=== PATIENT | female | born 1945 | race Caucasian/White ===

== ENCOUNTER 2017-05-20 08:26 | Outpatient (CLI) | payer MEDICARE, OTHER ==
[2015-09-15 13:08] VITALS: BP 154/78
== END 2017-05-20 08:27 ==
LOC: POD 08:26
PROVIDERS: ATTEND Podiatrist Public Medicine
DX: M25.774 Osteophyte, right foot (principal); E11.9 Type 2 diabetes mellitus without complications; M25.775 Osteophyte, left foot; L60.0 Ingrowing nail; M79.675 Pain in left toe(s)
CPT/HCPCS: 11721; G0463

== ENCOUNTER 2017-07-31 19:10 | Emergency (ER) | payer MEDICARE, OTHER ==
--- NOTE | 2017-07-31 19:30 | ED Physician Documentation ---
General Adult - HISTORIAN Historian: patient - HPI Stated Complaint: flashes in left eye Chief Complaint: General Adult Additional Information: Cooking dinner, and had about two minutes duration of seeing "icicles" left eye. Knoews she has cataract left eye. - ROS CONST: no problems - PAST HX Past History: hypertension Surgeries/Procedures: other (cataract extraction OD) Allergies/Adverse Reactions: Allergies Allergy/AdvReac Type Severity Reaction Status Date / Time ciprofloxacin [From Cipro] Allergy Verified 07/31/17 19:37 ciprofloxacin HCl Allergy Verified 07/31/17 19:37 [From Cipro] erythromycin base Allergy Verified 07/31/17 19:37 Home Medications: Ambulatory Orders Medication Instructions Recorded Insulin Glargine,Hum.rec.anlog 36 unit SQ HS 02/08/15 [Lantus] Metoprolol Tartrate [Lopressor] 50 mg PO BID 02/08/15 Sitagliptin Phosphate [Januvia] 100 mg PO D 02/08/15 Aspirin [Adult Low Dose Aspirin EC] 162 mg PO BID 09/15/15 Cyanocobalamin [Vitamin B-12] 1 mg PO MONTH 09/15/15 Fluticasone Furoate [Veramyst] 1 spray INH D 09/15/15 Insulin Aspart [Novolog Flexpen] 3 unit SQ AC15 09/15/15 Insulin Aspart [Novolog Flexpen] 5 unit SQ [id number] 09/15/15 Losartan Potassium [Cozaar] 25 mg PO BID 09/15/15 Simvastatin [Zocor] 20 mg PO D 09/15/15 Ranitidine HCl [Zantac] 75 mg PO BID 07/31/17 - SOCIAL HX Smoking History: non-smoker - FAMILY HX Family History: No - VITAL SIGNS Vital Signs: Vital Signs Temp Pulse Resp BP Pulse Ox 82 16 198/62 99 07/31/17 19:10 07/31/17 19:10 07/31/17 19:10 07/31/17 19:10 - REVIEWED ASSESSMENTS Nursing Assessment Reviewed: Yes Vitals Reviewed: Yes Progress - Progress Progress: Study Name: URSZULA PRINCE Date: Jul 31, 2017 7:31:[address] [employer]KE [employer]PLER Modality Type: CT\\SR Gender: F Description: CT BRAIN W/O CONTRAST : 41 Institution: [facility] Physician: JHON TOURE [facility] Head CT without contrast CLINICAL HISTORY: Visual disturbance on the left. TECHNIQUE: CT examination of brain is performed in contiguous axial slices without the use of contrast. FINDINGS: The 4th ventricle lies in a normal midline position. The ventricles and sulci are prominent secondary to atrophy. There is no hypodense or hyperdense mass or intracranial hemorrhage. Visualized paranasal sinuses and the mastoid air cells are clear. IMPRESSION: Atrophy. No acute intracranial changes. Electronically signed on Jul 31, 2017 7:46:[address] [employer]KE [employer]ER by: Pavan La Quite anxious. Concerns about aging. 2019, BP 180/82. Visual acuity, OS, 20/40, OD, couldn't read chart. (no vision OD prior to cataract extraction, she says). ED Results Lab/Radiology - Orders Orders: ED Orders Category Date Time Status CT BRAIN W/O CONTRAST Stat Exams 07/31/17 Ordered General Adult Physical Exam - PHYSICAL EXAM GENERAL APPEARANCE: mild distress (worried) EENT: other (non conjugate. pupils reactive to light. Fundoscopic attempted but unsuccessful. ) NECK: normal inspection, supple RESPIRATORY: no resp distress, breath sounds normal CVS: reg rate & rhythm, heart sounds normal BACK: normal inspection SKIN: warm/dry, normal color EXTREMITIES: normal range of motion (gait and stance), no evidence of injury NEURO: CN's nml as tested, motor nml, sensation nml, cognition normal (reflexes 2+) Discharge Clincal Impression: Vision disturbance Referrals: Rosemarie Carter FNP [REFERRING] - 2 Days Additional Instructions: Follow up with your eye doctor as needed. The CT scan of your brain did not show any changes. Condition: Good Disposition: 01 HOME, SELF-CARE Decision to Admit: NO Decision Time: 20:30
--- NOTE | 2017-07-31 20:01 | Diagnostic Imaging Report ---
JHON TOURE [facility] [address] [facility] [address] [place] [id number]. [id number] Report Submission Date: Jul 31, 2017 7:46:36 PM [employer]BE [employer]ACH[employer]END[employer] Patient Study Name: URSZULA PRINCE Date: Jul 31, 2017 7:31:22 PM [employer] MACH[employer] TEND[employer] Modality Type: CT\SR Gender: F Description: CT BRAIN W/O CONTRAST : 41 Institution: [facility] Physician: JHON TOURE Head CT without contrast CLINICAL HISTORY: Visual disturbance on the left. TECHNIQUE: CT examination of brain is performed in contiguous axial slices without the use of contrast. FINDINGS: The 4th ventricle lies in a normal midline position. The ventricles and sulci are prominent secondary to atrophy. There is no hypodense or hyperdense mass or intracranial hemorrhage. Visualized paranasal sinuses and the mastoid air cells are clear. IMPRESSION: Atrophy. No acute intracranial changes. Electronically signed on Jul 31, 2017 7:46:36 PM [employer]BE MACHINE TENDER by: Pavan COLLADO
[2017-07-31 20:48] VITALS: BP 152/80
== END 2017-07-31 20:45 | disposition home or self-care (01) ==
LOC: ED 19:10
DX: H53.9 Unspecified visual disturbance (principal)
CPT/HCPCS: 70450; 99283

== ENCOUNTER 2019-05-16 11:59 | Outpatient (CLI) | payer MEDICARE, OTHER ==
[2019-05-16 13:07] LABS: eGFR (Non-African) > 60
[2019-05-17 07:48] LABS: A1C 8.1 % (<5.7)
== END 2019-05-16 12:03 ==
LOC: LAB 11:59
PROVIDERS: ATTEND Nurse Practitioner
DX: E11.9 Type 2 diabetes mellitus without complications (principal)
CPT/HCPCS: 36415; 80053; 83036

== ENCOUNTER 2019-05-24 02:40 | Emergency (ER) | payer MEDICARE, OTHER ==
--- NOTE | 2019-05-24 03:17 | ED Physician Documentation ---
Female Urogenital Problems - HISTORIAN Historian: patient - HPI Stated Complaint: "I have a UTI sx's with diarrhea" Chief Complaint: Female Urogenital Problems Onset: days ago (2) Severity: moderate Location of Pain: other (burning with urination ) Further Comments: yes (She is aware she has UTI. Current meds are making her have diarrhea (5 since this am) no current vomiting but she does have nausea.. She does continue to have burning wiht urination. NO fever.) - Associated Symptoms Urinary Symptoms: frequent urination, discomfort w/ urination, burning w/ urination, urgency w/ urination, pain w/ urination Discharge: denies: vaginal discharge, vaginal fluid leakage, odorous discharge - ROS CONST: none GI/: diarrhea - PAST HX Past History: other (frequent UTI's ) Allergies/Adverse Reactions: Allergies Allergy/AdvReac Type Severity Reaction Status Date / Time ciprofloxacin [From Cipro] Allergy Verified 05/24/19 03:10 ciprofloxacin HCl Allergy Verified 05/24/19 03:10 [From Cipro] erythromycin base Allergy Verified 05/24/19 03:10 Home Medications: Ambulatory Orders Medication Instructions Recorded Metoprolol Tartrate [Lopressor] 50 mg PO BID 02/08/15 Sitagliptin Phosphate [Januvia] 100 mg PO D 02/08/15 Aspirin [Adult Low Dose Aspirin EC] 162 mg PO BID 09/15/15 Cyanocobalamin [Vitamin B-12] 1 mg PO MONTH 09/15/15 Fluticasone Furoate [Veramyst] 1 spray INH D 09/15/15 Insulin Aspart [Novolog Flexpen] 3 unit SQ AC15 09/15/15 Losartan Potassium [Cozaar] 25 mg PO BID 09/15/15 Simvastatin [Zocor] 20 mg PO D 09/15/15 Cranberry Conc/Ascorbic Acid 2 cap PO DAILY 05/24/19 [Cranberry Concentrate Softgel] D-Mannose 1 gm PO DAILY 05/24/19 Insulin Glargine,Hum.rec.anlog 20 units SQ HS 05/24/19 [Lantus Solostar] Isosorbide Dinitrate 30 mg PO DAILY 05/24/19 Krill/Om-3/Dha/Epa/Phospho/Ast 1 cap PO DAILY 05/24/19 [Megared [place]-3 Krill Oil Sfgl] Loratadine [Claritin] 10 mg PO DAILY 05/24/19 Omeprazole 20 mg PO DAILY 05/24/19 Phenazopyridine HCl 200 mg PO PRN 05/24/19 - SOCIAL HX Smoking History: non-smoker Alcohol Use: none Drug Use: none - FAMILY HX Family History: none - VITAL SIGNS Vital Signs: Vital Signs Temp Pulse Resp BP Pulse Ox 97.5 F L 68 16 116/92 98 05/24/19 02:43 05/24/19 02:43 05/24/19 02:43 05/24/19 02:43 05/24/19 02:43 - REVIEWED ASSESSMENTS Nursing Assessment Reviewed: Yes Vitals Reviewed: Yes Progress - Progress Progress: 0400: symptoms are improving DG ED Results Lab/Radiology - Orders Orders: ED Orders Category Date Time Status UA W/MICRO IF INDICATED Routine Lab 05/24/19 03:16 Ordered 0.9 % Sodium Chloride [Normal Saline] Med 05/24/19 03:16 Once 1,000 ml IV ONCE ONE Ondansetron HCl/Pf [Zofran] Med 05/24/19 03:11 Once 4 mg IVP NOW ONE Female Urogenital Problems - EXAM General Appearance: no acute distress EENT: eye inspection normal, no signs of dehydration Neck: nml inspection Respiratory: no resp. distress, breath sounds nml CVS: reg rate & rhythm, heart sounds normal Abdomen: soft, non-tender, tenderness Back: non-tender, painless ROM Skin: color nml, no rash Extremities: non-tender, no edema Neuro: oriented X3 Discharge Clincal Impression: UTI (urinary tract infection) Qualifiers: Urinary tract infection type: acute cystitis Hematuria presence: without hematuria Qualified Code(s): N30.00 - Acute cystitis without hematuria Referrals: Mario Mccall MD [Primary Care Provider] - 2 Days Comments: 1. Bactrim DS take 1 by mouth twice daily x 10 days 2. continue pyridium as ordered 3. Increase fluids 4. Zofran 4 mg take 1 by mouth every 8 hours as needed for nausea 5. Follow up with PCP in 2-4 days 6. Return to ER for any increased concerns Condition: Stable Disposition: HOME, SELF-CARE Decision to Admit: NO Date of Decison to Admit: 05/24/19 Decision Time: 04:10
[2019-05-24] MEDS: 0.9 % SODIUM CHLORIDE 1,000 ML IV ONE ×2 (03:25→03:30)
[2019-05-24] MEDS: ONDANSETRON HCL/PF 4 MG/ 2ML VIAL IVP ONE (03:30)
[2019-05-24] MEDS: NORMAL SALINE 500 ML IV.SOLN IV ONE ×2 (04:31)
[2019-05-24 04:38] VITALS: BP 147/76
[2019-05-24 06:40] LABS: APPEARANCE,URINE CLEAR (CLEAR); COLOR,URINE YELLOW (YELLOW); OCCULT BLOOD,URINE NEGATIVE (NEGATIVE); PH URINE 6.5 (5.0 - 8.0)
== END 2019-05-24 04:20 | disposition home or self-care (01) ==
LOC: ED 02:40
DX: N30.00 Acute cystitis without hematuria (principal)
CPT/HCPCS: 81002; 96361; 96374; 99284; J2405; J7030; S1016